=== PATIENT | male | born 1945 | race Caucasian/White ===

== ENCOUNTER 2018-09-08 05:18 | Inpatient (IN) | payer MEDICARE ==
[~2018-09-08] VITALS: Ht 185.4 cm; Wt 112.7 kg
--- NOTE | 2018-09-08 05:43 | NUR ---
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 PT CONFUSED, ALERT TO SELF ONLY, , REORIENTATED PT X3, MONITORS APPLIED, SIDERAILS UP X2, CALL LIGHT WITHIN REACH.
[2018-09-08] MEDS ORDERED: TAMS-11 PO (05:58)
[2018-09-08] MEDS ORDERED: SIMV20TA3 PO (05:58)
[2018-09-08] MEDS ORDERED: METO200T47 PO (05:58)
[2018-09-08] MEDS ORDERED: ATEN50TA41 PO (05:58)
[2018-09-08] MEDS ORDERED: WARF5TAB PO (05:58)
[2018-09-08] MEDS ORDERED: METF500T17 PO (05:58)
[2018-09-08] MEDS ORDERED: ALLO300T PO (05:58)
[2018-09-08] MEDS ORDERED: METF850T10 PO (05:58)
[2018-09-08] MEDS ORDERED: SODIUM CHLORIDE FLUSH 10ML SYR IVF ONE (06:00)
[2018-09-08 06:14] LABS: MEAN CORPUSCULAR HEMOGLOBIN 32.3 pg (27.5-34.5); MEAN CORPUSCULAR VOLUME 97.7 fL (81-97); MEAN PLATELET VOLUME 9.5 fL (7.4-10.4); PLATELET COUNT 144 x10^3/uL (130-400); RED BLOOD COUNT 4.13 x10^6/uL (4.38-5.82); RED CELL DISTRIBUTION WIDTH 17.1 % (9.4-14.8)
[2018-09-08 06:28] LABS: ALBUMIN 2.3 g/dL (3.4-5.0); ANION GAP 6 mmol/L (5-15); CALCIUM 8.9 mg/dL (8.5-10.1); CHLORIDE 98 mmol/L (98-107)
[2018-09-08 06:33] LABS: ALANINE AMINOTRANSFERASE 22 U/L (12-78); ALKALINE PHOSPHATASE 141 U/L (45-117); BILIRUBIN,TOTAL 1.2 mg/dL (0.2-1.0); TOTAL PROTEIN 5.4 g/dL (6.4-8.2)
[2018-09-08 06:35] LABS: TROPONIN I 0.143 ng/mL (0.000-0.045)
[2018-09-08 06:39] LABS: INTERNATIONAL NORMALIZED RATIO 11.98 (0.93-1.1); PROTHROMBIN TIME 115.4 Seconds (9.6-11.5)
--- NOTE | 2018-09-08 06:39 | NUR ---
ABIODUN FROM LAB CALLED WITH CRITICAL RESULT, TROPONIN-0.143, ERP UPDATED. ADDITIONAL ORDERS RECEIVED FOR LABS-LACTIC ACID, BLOOD C/X'S X2 SETS. Addendum: 09/08/18 at 0640 by CHAVO ERP UPDATED HR-120, ORDER RECEIVED TO NOTIFY MD IF PT'S HR 130 OR HIGHER
[2018-09-08 06:44] LABS: BASOPHILS # (AUTO) 0.01 x10^3/uL (0-0.1); BASOPHILS % (AUTO) 0 % (0-1); EOSINOPHILS % (AUTO) 0 % (1-7); LYMPHOCYTES # (AUTO) 0.85 x10^3/uL (1-3.4); LYMPHOCYTES % (AUTO) 5 % (22-44); MD SCAN; MONOCYTES # (AUTO) 1.32 x10^3/uL (0.2-0.8); MONOCYTES % (AUTO) 7 % (2-9); NEUTROPHILS # (AUTO) 16.25 x10^3/uL (1.8-6.8); NEUTROPHILS % (AUTO) 88 % (42-75)
[2018-09-08] MEDS ORDERED: PHYTONADIONE 10 MG/ML, 1ML ONE ×2 (06:47→09:22)
[2018-09-08] MEDS ORDERED: PHYTONADIONE 10 MG/ML, 1ML IM ONE (07:00)
[2018-09-08 07:01] LABS: MICROSCOPIC INDICATED
[2018-09-08 07:02] LABS: CULTURE INDICATED? YES
--- NOTE | 2018-09-08 07:03 | NUR ---
REPORT GIVEN TO RANDY DAILEY
--- NOTE | 2018-09-08 07:44 | NUR ---
ASSUMED CARE OF PT, BEDSIDE REPORT FROM ROXANNE PADILLA. PT PRESENTED TO ED WITH AMS, VSS AT THIS TIME, PT RESTING IN BED, AOX2. PLAN FOR LP THEN ADMIT.
[2018-09-08] MEDS ORDERED: CEFTRIAXONE PMX 1GM/50ML 50 ML ONE (08:20)
[2018-09-08] MEDS ORDERED: CEFTRIAXONE PMX 1GM/50ML 50 ML IV ONE (08:30)
--- NOTE | 2018-09-08 08:41 | NUR ---
DR. TRAN IS AT THE BEDSIDE ASSESSING THE PT. AT THIS TIME. IV ABX ARE INFUSING. PT. REMAINS MONITORED. SIDERAILS ARE UP X 2 AND THE CALL LIGHT IS IN PLACE.
[2018-09-08] MEDS ORDERED: POLYETHYLENE GLYCOL 17 GM PACKET PO PRN (09:00)
[2018-09-08] MEDS ORDERED: PHYTONADIONE 10 MG/ML, 1ML SQ ONE (09:00)
[2018-09-08] MEDS ORDERED: ONDANSETRON ODT 4 MG PO PRN (09:00)
[2018-09-08] MEDS ORDERED: ONDANSETRON 2MG/ML, 2ML IVPush PRN (09:00)
[2018-09-08] MEDS: SENNA/DOCUSATE TABLET PO SCH (09:00)
[2018-09-08] MEDS ORDERED: LABETALOL 5MG/ML, 20ML IVPush PRN (09:00)
--- NOTE | 2018-09-08 09:00 | NUR ---
NO CHANGES AT THIS TIME. PT. REMAINS MONITORED.
[2018-09-08 09:49] LABS: FREE T4 (FREE THYROXINE) 1.39 ng/dL (0.76-1.46); THYROID STIMULATING HORMONE 1.07 mIU/L (0.358-3.740)
--- NOTE | 2018-09-08 10:19 | NUR ---
PT. IS RESTING WITH THE CP MONITOR IN PLACE. VSS. NO CONCERNS AT THIS TIME.
--- NOTE | 2018-09-08 11:21 | NUR ---
PT RESTING IN BED, LAB AT BEDSIDE FOR TROPO. US TECH CONTACTED TO DO ECHO. PT ON TELE HOLD IN ED. PT AOX3 BUT CONVERSING, NO C/O PAIN. NAD. ON CARDIAC AND SPO2 MONITOR. WCTM. DECLINES RN TO CONTACT FAMILY OR FRIENDS AT THIS TIME.
[2018-09-08 11:42] LABS: TROPONIN I 0.102 ng/mL (0.000-0.045)
--- NOTE | 2018-09-08 12:28 | NUR ---
RN CHARY PLACED AN EJ IN THE LEFT SIDE OF HIS NECK FOR A CTA OF HIS CHEST TO BE DONE. PT. IS AWAKE AND SPEAKING AT THIS TIME. MENDEZ KANG IS AT THE BEDSIDE ATTEMPTING TO GET FAMILY INFORMATION FOR DR. TRAN. PT. HAS NO C/O PAIN.
--- NOTE | 2018-09-08 12:55 | NUR ---
MD AT BEDSIDE, DISCUSSED PROGNOSIS WITH PT AND PT WISHES TO REMAIN FULL CODE AT THIS TIME. BLADDER SCAN PERFORMED. EJ PLACED FOR CTA. SW ATTEMPTING TO CONTACT FAMILY.
[2018-09-08] MEDS: METOPROLOL TARTRATE 100 MG TABLET PO SCH ×3 (13:00→20:33)
[2018-09-08] MEDS ORDERED: METOPROLOL 1 MG/ML, 5ML IVPush ONE (13:00)
[2018-09-08] MEDS ORDERED: PIPERACILLIN/TAZO/PMX 3.375GM 50 ML IV SCH ×2 (13:00→21:00)
[2018-09-08] MEDS ORDERED: PHYTONADIONE 5 MG TABLET PO ONE (13:00)
--- NOTE | 2018-09-08 13:01 | NUR ---
PT.'S BLADDER WAS SCANNED. PT. HAS 360CC URINE PRESENT IN HIS BLADDER.
[2018-09-08] MEDS ORDERED: METOPROLOL 1 MG/ML, 5ML ONE (13:24)
[2018-09-08] MEDS ORDERED: FAMOTIDINE 20 MG/2 ML ONE (13:24)
[2018-09-08] MEDS ORDERED: PIPERACILLIN/TAZO/PMX 3.375GM 50 ML ONE (13:24)
[2018-09-08] MEDS ORDERED: METOPROLOL TARTRATE 50 MG TABLET ONE (13:24)
[2018-09-08] MEDS ORDERED: PHARMACY MAY ADJ FOR RENAL FX MC PRN (13:30)
--- NOTE | 2018-09-08 13:50 | NUR ---
PT RETURNED FROM CT, MEDICATED PER MD. PT CONVERSING BUT LETHARGIC. AOX3. PT TOOK PO MEDICATION WELL. O2 DECREASED FROM 4L TO 2L.
[2018-09-08] MEDS: FAMOTIDINE 20 MG/2 ML IVPush SCH ×2 (13:58→20:33)
[2018-09-08] MEDS ORDERED: OMNIPAQUE 350 MG/ML, 100ML BOTTLE ONE (14:24)
--- NOTE | 2018-09-08 14:44 | NUR ---
RN SPOKE WITH DR. ESCAMILLA ON THE PHONE, ORDERS RECEIVED. PT. WAS PLACED ON AN ESMOLOL GTT WHICH IS INFUSING ON THE PUMP ORDERED. IV ABX ARE INFUSING. MD WAS ASKED TO ORDER TYPE AND SCREEN FOR FFP INFUSION. PT. REMAINS MONITORED, HOB ELEVATED GREATER THAN 30 DEGREES. SIDERAILS ARE UP X 2. PT. HAS NO C/O PAIN.
[2018-09-08] MEDS: ESMOLOL/NS PMX 250 ML IV PRN (14:49)
--- NOTE | 2018-09-08 14:52 | NUR ---
RANDY CASTILLO IS CALLING REPORT TO RANDY SLADE IN CCU AT THIS TIME. PT. REMAINS MONITORED WITH ALL MEDICATIONS INFUSING ON PUMPS.
[2018-09-08] MEDS ORDERED: ESMOLOL/NS PMX 250 ML IV PRN (15:00)
--- NOTE | 2018-09-08 15:07 | NUR ---
PT. HAS THE CP MONITOR IN PLACE. PT.'S FRIEND MYESHA SANCHEZ PHONED TO INQUIRE ABOUT THE PT. PT. GAVE PERMISSION TO DISCUSS HIS CONDITION, TX AND CARE WITH HIS FRIEND. PT.'S FRIEND MYESHA WAS UPDATED ON THE PT.'S CONDITION. PT.'S FRIEND GAVE RN PT.'S BROTHER'S PHONE NUMBER. FRIEND: MYESHA SANCHEZ: [phone]. BROTHER: MYESHA GORDON SR. [phone].
[2018-09-08 16:49] VITALS: BP 116/90
[2018-09-08 17:04] VITALS: BP 122/93
[2018-09-08 18:21] VITALS: BP 140/89
[2018-09-08 18:35] VITALS: BP 118/91
[2018-09-08 19:30] VITALS: BP 109/82
[2018-09-08] MEDS: PIPERACILLIN/TAZO/PMX 4.5GM 100 ML IV SCH (20:27)
[2018-09-08] MEDS: FUROSEMIDE 20 MG TABLET PO SCH ×2 (20:30→20:33)
[2018-09-08] MEDS: ATORVASTATIN 20 MG TABLET PO SCH ×2 (20:30→20:33)
[2018-09-08] MEDS: POTASSIUM CHLORIDE 20 MEQ TAB.ER.PRT PO SCH ×2 (20:30→20:32)
[2018-09-08] MEDS ORDERED: ALBUMIN HUMAN 25% 100 ML IV ONE (20:30)
[2018-09-08 21:03] LABS: INTERNATIONAL NORMALIZED RATIO 3.09 (0.93-1.1); PROTHROMBIN TIME 31.4 Seconds (9.6-11.5)
[2018-09-08] MEDS ORDERED: FUROSEMIDE 40 MG/4 ML IV ONE (23:00)
[2018-09-08] MEDS ORDERED: POTASSIUM CHLORIDE 20 MEQ in SODIUM CHLORIDE 0.9% 250 ML IV ONE (23:00)
[2018-09-09] MEDS: PIPERACILLIN/TAZO/PMX 4.5GM 100 ML IV SCH ×4 (02:14→20:18)
[2018-09-09 04:43] LABS: MEAN CORPUSCULAR HEMOGLOBIN 31.1 pg (27.5-34.5); MEAN CORPUSCULAR HGB CONC 32.2 g/dL (33.2-36.2); MEAN CORPUSCULAR VOLUME 96.4 fL (81-97); MEAN PLATELET VOLUME 9.4 fL (7.4-10.4); PLATELET COUNT 119 x10^3/uL (130-400); RED BLOOD COUNT 3.97 x10^6/uL (4.38-5.82); RED CELL DISTRIBUTION WIDTH 16.9 % (9.4-14.8)
[2018-09-09 04:46] LABS: INTERNATIONAL NORMALIZED RATIO 2.01 (0.93-1.1); PROTHROMBIN TIME 20.7 Seconds (9.6-11.5)
[2018-09-09 04:48] LABS: ALBUMIN 2.4 g/dL (3.4-5.0); ANION GAP 8 mmol/L (5-15); CALCIUM 8.7 mg/dL (8.5-10.1); CHLORIDE 100 mmol/L (98-107)
[2018-09-09 04:51] LABS: ALANINE AMINOTRANSFERASE 16 U/L (12-78); ALKALINE PHOSPHATASE 114 U/L (45-117); BILIRUBIN,TOTAL 1.7 mg/dL (0.2-1.0); TOTAL PROTEIN 5.4 g/dL (6.4-8.2)
[2018-09-09 05:08] LABS: BASOPHILS % (AUTO) 0 % (0-1); EOSINOPHILS # (AUTO) 0.01 x10^3/uL (0-0.4); EOSINOPHILS % (AUTO) 0 % (1-7); LYMPHOCYTES # (AUTO) 0.32 x10^3/uL (1-3.4); LYMPHOCYTES % (AUTO) 3 % (22-44); MD SCAN; MONOCYTES # (AUTO) 0.44 x10^3/uL (0.2-0.8); MONOCYTES % (AUTO) 4 % (2-9); NEUTROPHILS % (AUTO) 94 % (42-75)
[2018-09-09] MEDS: METOPROLOL TARTRATE 100 MG TABLET PO SCH ×2 (06:00→16:25)
[2018-09-09] MEDS: ESMOLOL/NS PMX 250 ML IV PRN (06:36)
[2018-09-09] MEDS: FAMOTIDINE 20 MG/2 ML IVPush SCH ×2 (07:44→20:18)
[2018-09-09] MEDS: SENNA/DOCUSATE TABLET PO SCH (09:00)
[2018-09-09] MEDS ORDERED: TEMPLATE NON-FORMULARY MED. (Metoprolol Succinate** 200 MG) PO SCH (09:00)
[2018-09-09] MEDS: TAMSULOSIN 0.4 MG CAP.ER.24H PO SCH (09:00)
[2018-09-09] MEDS ORDERED: GADOBUTROL 10 MMOL/10 ML PFS ONE (12:44)
[2018-09-09] MEDS: PHYTONADIONE 10 MG/ML, 1ML SQ SCH (16:25)
[2018-09-09] MEDS: ATORVASTATIN 20 MG TABLET PO SCH (20:18)
[2018-09-10] MEDS: PIPERACILLIN/TAZO/PMX 4.5GM 100 ML IV SCH (02:07)
[2018-09-10 04:24] LABS: BASOPHILS % (AUTO) 0 % (0-1); EOSINOPHILS # (AUTO) 0.03 x10^3/uL (0-0.4); EOSINOPHILS % (AUTO) 0 % (1-7); LYMPHOCYTES # (AUTO) 0.39 x10^3/uL (1-3.4); LYMPHOCYTES % (AUTO) 3 % (22-44); MD NO; MEAN CORPUSCULAR HEMOGLOBIN 32.1 pg (27.5-34.5); MEAN CORPUSCULAR HGB CONC 32.9 g/dL (33.2-36.2); MEAN CORPUSCULAR VOLUME 97.6 fL (81-97); MEAN PLATELET VOLUME 9.7 fL (7.4-10.4); MONOCYTES # (AUTO) 1.06 x10^3/uL (0.2-0.8); MONOCYTES % (AUTO) 9 % (2-9); NEUTROPHILS # (AUTO) 10.53 x10^3/uL (1.8-6.8); NEUTROPHILS % (AUTO) 88 % (42-75); PLATELET COUNT 106 x10^3/uL (130-400); RED CELL DISTRIBUTION WIDTH 16.8 % (9.4-14.8)
[2018-09-10 04:25] LABS: INTERNATIONAL NORMALIZED RATIO 1.49 (0.93-1.1); PROTHROMBIN TIME 15.6 Seconds (9.6-11.5)
[2018-09-10 04:31] LABS: ANION GAP 6 mmol/L (5-15); CALCIUM 8.4 mg/dL (8.5-10.1); CHLORIDE 100 mmol/L (98-107); CREATININE 1.83 mg/dL (0.7-1.3)
[2018-09-10] MEDS: METOPROLOL TARTRATE 100 MG TABLET PO SCH ×2 (05:54→18:00)
[2018-09-10] MEDS: PIPERACILLIN/TAZO/PMX 3.375GM 50 ML IV SCH ×3 (08:04→20:21)
[2018-09-10] MEDS: SENNA/DOCUSATE TABLET PO SCH (09:00)
[2018-09-10] MEDS: TAMSULOSIN 0.4 MG CAP.ER.24H PO SCH (11:00)
[2018-09-10] MEDS: PHYTONADIONE 10 MG/ML, 1ML SQ SCH (11:01)
[2018-09-10] MEDS: ATORVASTATIN 20 MG TABLET PO SCH (20:21)
[2018-09-10 21:19] VITALS: BP 83/49
[2018-09-10 22:24] VITALS: BP 97/64
[2018-09-11] MEDS: PIPERACILLIN/TAZO/PMX 3.375GM 50 ML IV SCH ×4 (01:22→21:14)
[2018-09-11 01:28] VITALS: BP 104/76
[2018-09-11] MEDS: METOPROLOL TARTRATE 100 MG TABLET PO SCH ×2 (05:42→18:03)
[2018-09-11 06:13] LABS: BASOPHILS % (AUTO) 0 % (0-1); EOSINOPHILS # (AUTO) 0.01 x10^3/uL (0-0.4); EOSINOPHILS % (AUTO) 0 % (1-7); LYMPHOCYTES # (AUTO) 0.51 x10^3/uL (1-3.4); LYMPHOCYTES % (AUTO) 4 % (22-44); MD NO; MEAN CORPUSCULAR HEMOGLOBIN 31.7 pg (27.5-34.5); MEAN CORPUSCULAR HGB CONC 32.6 g/dL (33.2-36.2); MEAN CORPUSCULAR VOLUME 97.4 fL (81-97); MEAN PLATELET VOLUME 9.7 fL (7.4-10.4); MONOCYTES # (AUTO) 1.35 x10^3/uL (0.2-0.8); MONOCYTES % (AUTO) 10 % (2-9); NEUTROPHILS # (AUTO) 11.36 x10^3/uL (1.8-6.8); NEUTROPHILS % (AUTO) 86 % (42-75); PLATELET COUNT 111 x10^3/uL (130-400); RED BLOOD COUNT 4.19 x10^6/uL (4.38-5.82); RED CELL DISTRIBUTION WIDTH 17.1 % (9.4-14.8)
[2018-09-11 06:21] LABS: ANION GAP 8 mmol/L (5-15); CHLORIDE 99 mmol/L (98-107); CREATININE 2.32 mg/dL (0.7-1.3)
[2018-09-11 07:40] VITALS: BP 95/64
[2018-09-11] MEDS: PHYTONADIONE 10 MG/ML, 1ML SQ SCH (10:50)
[2018-09-11] MEDS: TAMSULOSIN 0.4 MG CAP.ER.24H PO SCH (10:56)
[2018-09-11] MEDS: SENNA/DOCUSATE TABLET PO SCH (10:56)
[2018-09-11 12:29] LABS: INTERNATIONAL NORMALIZED RATIO 1.28 (0.93-1.1); PROTHROMBIN TIME 13.4 Seconds (9.6-11.5)
[2018-09-11 13:22] VITALS: BP 115/76
[2018-09-11] MEDS: INSULIN LISPRO 100 UNITS/ML, PEN SQ-INSULIN SCH ×3 (15:17→21:19)
[2018-09-11] MEDS: SODIUM CHLORIDE 0.9% 1,000 ML IV SCH (16:51)
[2018-09-11 20:26] VITALS: BP 120/68
[2018-09-11] MEDS: ATORVASTATIN 20 MG TABLET PO SCH (21:14)
[2018-09-12] MEDS: PIPERACILLIN/TAZO/PMX 3.375GM 50 ML IV SCH ×4 (02:34→20:47)
[2018-09-12 03:39] VITALS: BP 129/86
[2018-09-12 04:28] LABS: BASOPHILS # (AUTO) 0.05 x10^3/uL (0-0.1); BASOPHILS % (AUTO) 0 % (0-1); EOSINOPHILS # (AUTO) 0.03 x10^3/uL (0-0.4); EOSINOPHILS % (AUTO) 0 % (1-7); LYMPHOCYTES # (AUTO) 0.68 x10^3/uL (1-3.4); LYMPHOCYTES % (AUTO) 5 % (22-44); MD NO; MEAN CORPUSCULAR HEMOGLOBIN 31.4 pg (27.5-34.5); MEAN CORPUSCULAR HGB CONC 32.2 g/dL (33.2-36.2); MEAN CORPUSCULAR VOLUME 97.4 fL (81-97); MEAN PLATELET VOLUME 9.5 fL (7.4-10.4); MONOCYTES # (AUTO) 1.27 x10^3/uL (0.2-0.8); MONOCYTES % (AUTO) 9 % (2-9); NEUTROPHILS # (AUTO) 11.51 x10^3/uL (1.8-6.8); NEUTROPHILS % (AUTO) 85 % (42-75); PLATELET COUNT 132 x10^3/uL (130-400); RED BLOOD COUNT 4.38 x10^6/uL (4.38-5.82); RED CELL DISTRIBUTION WIDTH 17.2 % (9.4-14.8)
[2018-09-12 04:40] LABS: CALCIUM 8.5 mg/dL (8.5-10.1); CHLORIDE 101 mmol/L (98-107)
[2018-09-12 04:43] LABS: ANION GAP 10 mmol/L (5-15); CREATININE 2.79 mg/dL (0.7-1.3)
[2018-09-12] MEDS: SODIUM CHLORIDE 0.9% 1,000 ML IV SCH ×2 (06:17→20:49)
[2018-09-12] MEDS: METOPROLOL TARTRATE 100 MG TABLET PO SCH ×2 (06:17→18:13)
[2018-09-12] MEDS: INSULIN LISPRO 100 UNITS/ML, PEN SQ-INSULIN SCH ×4 (07:00→20:47)
[2018-09-12] MEDS: TAMSULOSIN 0.4 MG CAP.ER.24H PO SCH (09:11)
[2018-09-12] MEDS: SENNA/DOCUSATE TABLET PO SCH (09:11)
[2018-09-12] MEDS: PHYTONADIONE 10 MG/ML, 1ML SQ SCH (09:12)
[2018-09-12 09:20] VITALS: BP 116/83
[2018-09-12 11:27] LABS: MICROSCOPIC INDICATED
[2018-09-12] MEDS ORDERED: VANCOMYCIN PER PHARMACY MC PRN (11:30)
[2018-09-12 11:36] LABS: CREATININE,URINE RANDOM 70.1 mg/dL
[2018-09-12] MEDS ORDERED: PHARMACOKINETIC MONITORING MC PRN (12:00)
[2018-09-12] MEDS ORDERED: PHARMACOKINETIC CONSULTATION MC ONE (12:00)
[2018-09-12] MEDS ORDERED: VANCOMYCIN 2,000 MG in SODIUM CHLORIDE 0.9% 500 ML IV SCH (12:00)
[2018-09-12 12:14] LABS: CULTURE INDICATED? YES
[2018-09-12 12:55] VITALS: BP 122/87
[2018-09-12 18:17] VITALS: BP 135/90
[2018-09-12] MEDS: ATORVASTATIN 20 MG TABLET PO SCH (20:47)
[2018-09-13 01:50] VITALS: BP 136/96
[2018-09-13] MEDS: PIPERACILLIN/TAZO/PMX 3.375GM 50 ML IV SCH ×4 (02:00→21:45)
[2018-09-13] MEDS: METOPROLOL TARTRATE 100 MG TABLET PO SCH ×2 (05:58→17:37)
[2018-09-13 06:02] LABS: BASOPHILS % (AUTO) 0 % (0-1); EOSINOPHILS # (AUTO) 0.02 x10^3/uL (0-0.4); EOSINOPHILS % (AUTO) 0 % (1-7); LYMPHOCYTES # (AUTO) 0.71 x10^3/uL (1-3.4); LYMPHOCYTES % (AUTO) 6 % (22-44); MD NO; MEAN CORPUSCULAR HEMOGLOBIN 31.4 pg (27.5-34.5); MEAN CORPUSCULAR HGB CONC 32.4 g/dL (33.2-36.2); MEAN CORPUSCULAR VOLUME 96.8 fL (81-97); MEAN PLATELET VOLUME 9.2 fL (7.4-10.4); MONOCYTES # (AUTO) 1.26 x10^3/uL (0.2-0.8); MONOCYTES % (AUTO) 10 % (2-9); NEUTROPHILS # (AUTO) 10.62 x10^3/uL (1.8-6.8); NEUTROPHILS % (AUTO) 84 % (42-75); PLATELET COUNT 128 x10^3/uL (130-400); RED BLOOD COUNT 4.37 x10^6/uL (4.38-5.82); RED CELL DISTRIBUTION WIDTH 16.9 % (9.4-14.8)
[2018-09-13 06:16] LABS: ANION GAP 8 mmol/L (5-15); CALCIUM 8.4 mg/dL (8.5-10.1); CHLORIDE 102 mmol/L (98-107); CREATININE 3.16 mg/dL (0.7-1.3)
[2018-09-13 07:05] VITALS: BP 131/96
[2018-09-13] MEDS: INSULIN LISPRO 100 UNITS/ML, PEN SQ-INSULIN SCH ×4 (07:50→21:46)
[2018-09-13] MEDS: SENNA/DOCUSATE TABLET PO SCH (09:00)
[2018-09-13] MEDS: TAMSULOSIN 0.4 MG CAP.ER.24H PO SCH (09:07)
[2018-09-13 13:17] VITALS: BP 103/63
[2018-09-13] MEDS: SODIUM CHLORIDE 0.9% 1,000 ML IV SCH (20:00)
[2018-09-13 20:29] VITALS: BP 109/78
[2018-09-13] MEDS: ATORVASTATIN 20 MG TABLET PO SCH (21:45)
[2018-09-14] MEDS ORDERED: VANCOMYCIN PER PHARMACY MC PRN (00:30)
[2018-09-14] MEDS: PIPERACILLIN/TAZO 2.25 GM in SODIUM CHLORIDE 0.9% 50 ML IV SCH ×4 (01:30→21:14)
[2018-09-14 02:58] VITALS: BP 128/94
[2018-09-14] MEDS: METOPROLOL TARTRATE 100 MG TABLET PO SCH ×2 (05:34→18:13)
[2018-09-14 06:10] LABS: BASOPHILS % (AUTO) 0 % (0-1); CHLORIDE 103 mmol/L (98-107); EOSINOPHILS # (AUTO) 0.03 x10^3/uL (0-0.4); EOSINOPHILS % (AUTO) 0 % (1-7); LYMPHOCYTES # (AUTO) 0.67 x10^3/uL (1-3.4); LYMPHOCYTES % (AUTO) 7 % (22-44); MD NO; MEAN CORPUSCULAR HEMOGLOBIN 31.8 pg (27.5-34.5); MEAN CORPUSCULAR HGB CONC 32.8 g/dL (33.2-36.2); MEAN CORPUSCULAR VOLUME 97.1 fL (81-97); MEAN PLATELET VOLUME 9.5 fL (7.4-10.4); MONOCYTES % (AUTO) 11 % (2-9); NEUTROPHILS # (AUTO) 8.52 x10^3/uL (1.8-6.8); NEUTROPHILS % (AUTO) 83 % (42-75); PLATELET COUNT 135 x10^3/uL (130-400); RED BLOOD COUNT 4.55 x10^6/uL (4.38-5.82)
[2018-09-14 06:17] LABS: ANION GAP 7 mmol/L (5-15); CALCIUM 8.6 mg/dL (8.5-10.1); CREATININE 3.25 mg/dL (0.7-1.3)
[2018-09-14] MEDS: INSULIN LISPRO 100 UNITS/ML, PEN SQ-INSULIN SCH ×4 (07:00→21:14)
[2018-09-14 08:04] VITALS: BP 121/90
[2018-09-14] MEDS: SENNA/DOCUSATE TABLET PO SCH (09:00)
[2018-09-14] MEDS: LINEZOLID PMX 600MG/300ML 300 ML IV SCH ×2 (10:19→22:57)
[2018-09-14] MEDS: TAMSULOSIN 0.4 MG CAP.ER.24H PO SCH ×2 (10:20→12:16)
[2018-09-14] MEDS: SODIUM CHLORIDE 0.9% 1,000 ML IV SCH (15:28)
[2018-09-14 16:10] VITALS: BP 134/89
[2018-09-14 18:33] VITALS: BP 128/84
[2018-09-14] MEDS: ATORVASTATIN 20 MG TABLET PO SCH (21:14)
[2018-09-15 01:04] VITALS: BP 123/80
[2018-09-15] MEDS: PIPERACILLIN/TAZO 2.25 GM in SODIUM CHLORIDE 0.9% 50 ML IV SCH ×3 (02:45→17:19)
[2018-09-15] MEDS: SODIUM CHLORIDE 0.9% 1,000 ML IV SCH (06:00)
[2018-09-15] MEDS: METOPROLOL TARTRATE 100 MG TABLET PO SCH ×2 (06:03→17:19)
[2018-09-15] MEDS: INSULIN LISPRO 100 UNITS/ML, PEN SQ-INSULIN SCH ×4 (07:00→20:03)
[2018-09-15] MEDS: LINEZOLID PMX 600MG/300ML 300 ML IV SCH ×2 (08:16→20:02)
[2018-09-15 09:20] VITALS: BP 152/104
[2018-09-15] MEDS: TAMSULOSIN 0.4 MG CAP.ER.24H PO SCH (09:58)
[2018-09-15] MEDS: SENNA/DOCUSATE TABLET PO SCH (09:58)
[2018-09-15 11:31] LABS: BASOPHILS # (AUTO) 0.02 x10^3/uL (0-0.1); BASOPHILS % (AUTO) 0 % (0-1); EOSINOPHILS # (AUTO) 0.03 x10^3/uL (0-0.4); EOSINOPHILS % (AUTO) 0 % (1-7); LYMPHOCYTES % (AUTO) 6 % (22-44); MD NO; MEAN CORPUSCULAR HEMOGLOBIN 30.7 pg (27.5-34.5); MEAN CORPUSCULAR HGB CONC 31.9 g/dL (33.2-36.2); MEAN CORPUSCULAR VOLUME 96.2 fL (81-97); MEAN PLATELET VOLUME 8.8 fL (7.4-10.4); MONOCYTES # (AUTO) 0.88 x10^3/uL (0.2-0.8); MONOCYTES % (AUTO) 7 % (2-9); NEUTROPHILS # (AUTO) 10.71 x10^3/uL (1.8-6.8); NEUTROPHILS % (AUTO) 87 % (42-75); PLATELET COUNT 168 x10^3/uL (130-400); RED BLOOD COUNT 4.75 x10^6/uL (4.38-5.82); RED CELL DISTRIBUTION WIDTH 17.3 % (9.4-14.8)
[2018-09-15 11:41] LABS: ALANINE AMINOTRANSFERASE 22 U/L (12-78); ALBUMIN 2.1 g/dL (3.4-5.0); ANION GAP 10 mmol/L (5-15); CALCIUM 8.5 mg/dL (8.5-10.1); CHLORIDE 101 mmol/L (98-107); CREATININE 2.95 mg/dL (0.7-1.3)
[2018-09-15 11:43] LABS: ALKALINE PHOSPHATASE 218 U/L (45-117); TOTAL PROTEIN 5.4 g/dL (6.4-8.2)
[2018-09-15] MEDS ORDERED: LIDOCAINE-MPF 1%, 5ML ONE (12:35)
[2018-09-15] MEDS: ALBUMIN HUMAN 25% 100 ML IV SCH ×2 (16:02→23:06)
[2018-09-15 16:25] VITALS: BP 123/86
[2018-09-15 19:04] VITALS: BP 124/84
[2018-09-15] MEDS: ATORVASTATIN 20 MG TABLET PO SCH (20:02)
[2018-09-16] MEDS: PIPERACILLIN/TAZO/PMX 2.25GM 50 ML IV SCH ×4 (02:12→20:31)
[2018-09-16 02:24] VITALS: BP 132/92
[2018-09-16] MEDS: ALBUMIN HUMAN 25% 100 ML IV SCH ×3 (05:05→16:47)
[2018-09-16] MEDS: METOPROLOL TARTRATE 100 MG TABLET PO SCH ×2 (05:05→17:45)
[2018-09-16] MEDS: INSULIN LISPRO 100 UNITS/ML, PEN SQ-INSULIN SCH ×4 (07:00→21:36)
[2018-09-16 08:05] VITALS: BP 121/78
[2018-09-16] MEDS: SENNA/DOCUSATE TABLET PO SCH (08:15)
[2018-09-16] MEDS: TAMSULOSIN 0.4 MG CAP.ER.24H PO SCH (08:15)
[2018-09-16] MEDS: LINEZOLID PMX 600MG/300ML 300 ML IV SCH ×2 (09:14→22:29)
[2018-09-16 10:23] LABS: ANION GAP 9 mmol/L (5-15); CALCIUM 8.3 mg/dL (8.5-10.1); CHLORIDE 105 mmol/L (98-107); CREATININE 2.45 mg/dL (0.7-1.3)
[2018-09-16 10:25] LABS: MEAN CORPUSCULAR HEMOGLOBIN 30.9 pg (27.5-34.5); MEAN CORPUSCULAR HGB CONC 32.2 g/dL (33.2-36.2); MEAN CORPUSCULAR VOLUME 96.1 fL (81-97); MEAN PLATELET VOLUME 8.9 fL (7.4-10.4); PLATELET COUNT 154 x10^3/uL (130-400); RED CELL DISTRIBUTION WIDTH 17.4 % (9.4-14.8)
[2018-09-16 10:42] LABS: BASOPHILS # (AUTO) 0.01 x10^3/uL (0-0.1); BASOPHILS % (AUTO) 0 % (0-1); EOSINOPHILS # (AUTO) 0.03 x10^3/uL (0-0.4); EOSINOPHILS % (AUTO) 0 % (1-7); LYMPHOCYTES # (AUTO) 0.57 x10^3/uL (1-3.4); LYMPHOCYTES % (AUTO) 5 % (22-44); MD MORPH REVIEW ONLY; MONOCYTES # (AUTO) 0.76 x10^3/uL (0.2-0.8); MONOCYTES % (AUTO) 7 % (2-9); NEUTROPHILS # (AUTO) 9.75 x10^3/uL (1.8-6.8); NEUTROPHILS % (AUTO) 88 % (42-75)
[2018-09-16 10:44] LABS: <PLATELET ESTIMATE> ADEQUATE; <PLT MORPHOLOGY> NORMAL PLT MORPH; ANISOCYTOSIS 1+; OVALOCYTES 1+; POLYCHROMASIA 1+
[2018-09-16 13:05] VITALS: BP 133/97
[2018-09-16 20:00] VITALS: BP 138/88
[2018-09-16] MEDS: ATORVASTATIN 20 MG TABLET PO SCH (21:36)
[2018-09-17] MEDS: ALBUMIN HUMAN 25% 100 ML IV SCH ×2 (01:09→08:56)
[2018-09-17 01:43] VITALS: BP 132/90
[2018-09-17] MEDS: PIPERACILLIN/TAZO/PMX 2.25GM 50 ML IV SCH ×3 (02:26→14:34)
[2018-09-17 05:45] LABS: BASOPHILS % (AUTO) 0 % (0-1); EOSINOPHILS # (AUTO) 0.01 x10^3/uL (0-0.4); EOSINOPHILS % (AUTO) 0 % (1-7); LYMPHOCYTES # (AUTO) 0.69 x10^3/uL (1-3.4); LYMPHOCYTES % (AUTO) 6 % (22-44); MD NO; MEAN CORPUSCULAR HEMOGLOBIN 31.8 pg (27.5-34.5); MEAN CORPUSCULAR HGB CONC 32.8 g/dL (33.2-36.2); MEAN CORPUSCULAR VOLUME 97.2 fL (81-97); MEAN PLATELET VOLUME 8.7 fL (7.4-10.4); MONOCYTES # (AUTO) 0.76 x10^3/uL (0.2-0.8); MONOCYTES % (AUTO) 6 % (2-9); NEUTROPHILS # (AUTO) 11.14 x10^3/uL (1.8-6.8); NEUTROPHILS % (AUTO) 88 % (42-75); PLATELET COUNT 153 x10^3/uL (130-400); RED BLOOD COUNT 4.05 x10^6/uL (4.38-5.82)
[2018-09-17] MEDS: METOPROLOL TARTRATE 100 MG TABLET PO SCH ×2 (05:58→18:17)
[2018-09-17 06:06] LABS: ANION GAP 9 mmol/L (5-15); CALCIUM 8.7 mg/dL (8.5-10.1); CHLORIDE 107 mmol/L (98-107)
[2018-09-17 06:07] LABS: CREATININE 2.15 mg/dL (0.7-1.3)
[2018-09-17] MEDS: INSULIN LISPRO 100 UNITS/ML, PEN SQ-INSULIN SCH ×3 (07:00→18:18)
[2018-09-17 08:00] VITALS: BP 155/108
[2018-09-17] MEDS: TAMSULOSIN 0.4 MG CAP.ER.24H PO SCH (08:57)
[2018-09-17] MEDS: SENNA/DOCUSATE TABLET PO SCH (08:57)
[2018-09-17] MEDS ORDERED: POTASSIUM CHLORIDE 20 MEQ TAB.ER.PRT PO ONE (10:30)
[2018-09-17 12:15] VITALS: BP 146/104
[2018-09-17 13:30] VITALS: BP 131/89
[2018-09-17] MEDS: LINEZOLID PMX 600MG/300ML 300 ML IV SCH (13:43)
[2018-09-17] MEDS ORDERED: METO-99 PO (14:03)
[2018-09-17] MEDS ORDERED: ALLO100T30 PO (14:03)
[2018-09-17] MEDS ORDERED: INSU100I11 SQ-INSULIN (14:03)
[2018-09-17] MEDS ORDERED: LINE600T37 PO (14:06)
[2018-09-17] MEDS ORDERED: LEVO500T47 PO (14:06)
[2018-09-17 16:23] VITALS: BP 147/99
[2018-09-17 18:09] VITALS: BP 142/98
== END 2018-09-17 23:53 | disposition home or self-care (01) | DRG 871 ==
LOC: ED 08:04 → EDIP 08:05 → ED 08:11 → CCU 15:20 → 4WST 09-10 15:13
PROVIDERS: ADMIT Internal Medicine; ATTEND Internal Medicine
PROC: 30233K1 Transfusion of Nonautologous Frozen Plasma into Peripheral Vein, Percutaneous Approach (ICD-10-PCS; 2018-09-08)
PROC: 0T9B70Z Drainage of Bladder with Drainage Device, Via Natural or Artificial Opening (ICD-10-PCS; 2018-09-08)
PROC: 0W9G3ZZ Drainage of Peritoneal Cavity, Percutaneous Approach (ICD-10-PCS; principal; 2018-09-15)
DX: A41.9 Sepsis, unspecified organism (principal); G93.41 Metabolic encephalopathy; I71.01 Dissection of thoracic aorta; I61.9 Nontraumatic intracerebral hemorrhage, unspecified; I71.02 Dissection of abdominal aorta; J18.9 Pneumonia, unspecified organism; J96.01 Acute respiratory failure with hypoxia; I62.00 Nontraumatic subdural hemorrhage, unspecified; D68.59 Other primary thrombophilia; I13.0 Hypertensive heart and chronic kidney disease with heart failure and stage 1 through stage 4 chronic kidney disease, or unspecified chronic kidney disease; J44.0 Chronic obstructive pulmonary disease with (acute) lower respiratory infection; J90 Pleural effusion, not elsewhere classified; J98.11 Atelectasis; N17.9 Acute kidney failure, unspecified; R18.8 Other ascites; K56.7 Ileus, unspecified; D64.9 Anemia, unspecified; E04.2 Nontoxic multinodular goiter; E11.22 Type 2 diabetes mellitus with diabetic chronic kidney disease; E78.00 Pure hypercholesterolemia, unspecified; F17.200 Nicotine dependence, unspecified, uncomplicated; E78.5 Hyperlipidemia, unspecified; Z88.8 Allergy status to other drugs, medicaments and biological substances; I27.29 Other secondary pulmonary hypertension; I48.2 Chronic atrial fibrillation; I50.810 Right heart failure, unspecified; K21.9 Gastro-esophageal reflux disease without esophagitis; K76.9 Liver disease, unspecified; M10.9 Gout, unspecified; N18.9 Chronic kidney disease, unspecified; N40.0 Benign prostatic hyperplasia without lower urinary tract symptoms; T50.8X5A Adverse effect of diagnostic agents, initial encounter; Y95 Nosocomial condition; Z79.01 Long term (current) use of anticoagulants; Z86.79 Personal history of other diseases of the circulatory system; Z95.2 Presence of prosthetic heart valve
CPT/HCPCS: 36415; 36430; 49083; 70450; 70553; 71045; 71250; 71275; 74018; 74174; 74176; 76700; 80048; 80053; 80202; 81001; 82042; 82140; 82570; 82607; 82962; 83605; 83615; 83735; 83880; 83986; 84100; 84145; 84156; 84157; 84300; 84439; 84443; 84484; 85014; 85018; 85025; 85379; 85610; 86850; 86900; 87040; 87070; 87081; 87086; 87205; 88112; 88305; 89051; 93005; 93306; 93975; 93978; 99291; A9585; G0378; J0696; J1940; J2020; J2543; J3370; J3430; J3480; P9047; Q9967; J1815; J3490; J7030; J7040; J7050; P9017

== ENCOUNTER 2018-09-30 22:09 | Inpatient (IN) | payer MEDICARE ==
[~2018-09-30] VITALS: Ht 185.4 cm; Wt 109.9 kg
[~2018-09-30 22:09] MED LIST: ALLO100T30 PO; ALLO300T PO; ATEN50TA41 PO; INSU100I11 SQ-INSULIN; LEVO500T47 PO; LINE600T37 PO; METF500T17 PO; METF850T10 PO; METO-99 PO; METO200T47 PO; SIMV20TA3 PO; TAMS-11 PO; WARF5TAB PO
--- NOTE | 2018-09-30 22:36 | NUR ---
PT BROUGHT IN BY [facility] FOR POSSIBLE SYNCOPAL EPISODE. PT SATING IN 80'S ON ROOM AIR, PLACED ON 4 LPM VIA NC. BLOOD PRESSURE 80'S SYSTOLIC, 1 LITER BOLUS STARTED PER MD AT BEDSIDE, PT ORIENTED TO SELF, DENIES PAIN. LOWER BODY EDEMA, 4+ PITTING WEEPING EDEMA IN BOTH LEGS. BRUSING NOTED R CHEST BILATERAL UE SKIN TEARS. GROIN EXCORIATED, OPEN WOUND L FOOT. SEO IN PLACE WITH CLOUDY YELLOW URINE. PT PLACE ON CARDIAC MONITORM CALL RIGHT IN REACH Addendum: 10/01/18 at 0106 by MANDEEP UNABLE TO TAKE WOUND PICTURES, NO CAMERA AVAILABLE
--- NOTE | 2018-09-30 22:52 | NUR ---
1ST LITER INFUSED; DR. GALVAN UPDATED ON VS. AWAITING LAB FOR BLOOD CULTURES PRIOR TO IV ABX.
[2018-09-30] MEDS ORDERED: SODIUM CHLORIDE 0.9% 1,000ML IVBOLUS ONE ×2 (23:00→23:30)
[2018-09-30] MEDS ORDERED: PIPERACILLIN/TAZO/PMX 3.375GM 50 ML IVPB ONE (23:00)
[2018-09-30] MEDS ORDERED: VANCOMYCIN PER PHARMACY IV ONE (23:00)
[2018-09-30] MEDS ORDERED: PIPERACILLIN/TAZO/PMX 3.375GM 50 ML ONE (23:04)
[2018-09-30 23:14] LABS: BASOPHILS # (AUTO) 0.01 x10^3/uL (0-0.1); BASOPHILS % (AUTO) 0 % (0-1); EOSINOPHILS # (AUTO) 0.01 x10^3/uL (0-0.4); EOSINOPHILS % (AUTO) 0 % (1-7); LYMPHOCYTES # (AUTO) 0.38 x10^3/uL (1-3.4); LYMPHOCYTES % (AUTO) 3 % (22-44); MD NO; MEAN CORPUSCULAR HEMOGLOBIN 31.6 pg (27.5-34.5); MEAN CORPUSCULAR HGB CONC 31.3 g/dL (33.2-36.2); MEAN CORPUSCULAR VOLUME 101.1 fL (81-97); MEAN PLATELET VOLUME 9.2 fL (7.4-10.4); MONOCYTES # (AUTO) 0.94 x10^3/uL (0.2-0.8); MONOCYTES % (AUTO) 8 % (2-9); NEUTROPHILS # (AUTO) 10.28 x10^3/uL (1.8-6.8); NEUTROPHILS % (AUTO) 88 % (42-75); PLATELET COUNT 131 x10^3/uL (130-400); RED BLOOD COUNT 3.63 x10^6/uL (4.38-5.82); RED CELL DISTRIBUTION WIDTH 20.6 % (9.4-14.8)
--- NOTE | 2018-09-30 23:15 | NUR ---
SECOND IV STARTED, ANTIBIOTIC INFUSING AFTER 2 SETS OF BLOOD CULTURES DRAWN
[2018-09-30 23:26] LABS: ALANINE AMINOTRANSFERASE 36 U/L (12-78); ALBUMIN 2.4 g/dL (3.4-5.0); ANION GAP 6 mmol/L (5-15); CALCIUM 7.7 mg/dL (8.5-10.1); CHLORIDE 112 mmol/L (98-107); CREATININE 1.87 mg/dL (0.7-1.3)
[2018-09-30] MEDS ORDERED: VANCOMYCIN 2,000 MG in SODIUM CHLORIDE 0.9% 500 ML IV ONE (23:30)
[2018-09-30 23:31] LABS: ALKALINE PHOSPHATASE 355 U/L (45-117); BILIRUBIN,TOTAL 0.7 mg/dL (0.2-1.0); TOTAL PROTEIN 5.1 g/dL (6.4-8.2); TROPONIN I 0.048 ng/mL (0.000-0.045)
--- NOTE | 2018-09-30 23:34 | NUR ---
LAB CALLED, TROPONIN 0.048, MD NOTIFIED
--- NOTE | 2018-09-30 23:47 | NUR ---
AT APPROXIMATELY 2315 FOELY BAG WAS CHANGED AND FOELY CATH CARE/CLEANING PROVIDED. NO URINE OUTPUT AT THIS TIME; DR. AGLVAN AWARE. NO NEW ORDERS AT THIS TIME.
--- NOTE | 2018-09-30 23:48 | NUR ---
PT RESTLESS, SAYS HE IS AT A TRUCK STOP. VACOMYCIN INFUSING PER eMAR
[2018-10-01] MEDS ORDERED: LABETALOL 5 MG/ML SYRINGE IVPush PRN (00:30)
[2018-10-01] MEDS ORDERED: POLYETHYLENE GLYCOL 17 GM PACKET PO PRN (00:30)
[2018-10-01] MEDS ORDERED: HEPARIN 5,000 UNITS/ML, 1ML SQ SCH (00:30)
[2018-10-01] MEDS ORDERED: HEPARIN 5,000 UNITS/ML, 1ML ONE (00:47)
[2018-10-01] MEDS: CEFTRIAXONE PMX 2GM/50ML 50 ML IV SCH ×2 (01:00→02:29)
[2018-10-01] MEDS ORDERED: SODIUM POLYSTYRENE SULFONATE ORAL SUSP PO SCH (01:00)
[2018-10-01] MEDS ORDERED: FUROSEMIDE 40 MG/4 ML IV ONE (01:00)
[2018-10-01] MEDS ORDERED: SODIUM POLYSTYRENE SULFONATE ORAL SUSP PO ONE (01:00)
--- NOTE | 2018-10-01 01:03 | NUR ---
REPORT GIVEN TO RANDY RILEY
[2018-10-01 01:18] VITALS: BP 94/67
[2018-10-01 03:57] LABS: MICROSCOPIC INDICATED
[2018-10-01 03:58] LABS: CULTURE INDICATED? YES
[2018-10-01] MEDS ORDERED: FUROSEMIDE 40 MG/4 ML IV SCH (04:54)
[2018-10-01] MEDS ORDERED: METOPROLOL TARTRATE 100 MG TABLET PO SCH (06:00)
[2018-10-01] MEDS ORDERED: ASPIRIN 325 MG TABLET EC PO SCH (06:00)
[2018-10-01 06:09] VITALS: BP 107/78
[2018-10-01 07:27] LABS: ANION GAP 7 mmol/L (5-15); CALCIUM 8.6 mg/dL (8.5-10.1); CHLORIDE 109 mmol/L (98-107); CREATININE 2.04 mg/dL (0.7-1.3)
[2018-10-01 07:30] LABS: TROPONIN I 0.035 ng/mL (0.000-0.045)
[2018-10-01 07:57] VITALS: BP 110/76
[2018-10-01] MEDS ORDERED: ALBUTEROL SULFATE 2.5 MG/3 ML ONE (07:58)
[2018-10-01] MEDS ORDERED: ALBUTEROL SULFATE 2.5 MG/3 ML NPPB PRN (08:30)
[2018-10-01 08:33] LABS: BASOPHILS % (AUTO) 0 % (0-1); EOSINOPHILS % (AUTO) 0 % (1-7); LYMPHOCYTES # (AUTO) 0.42 x10^3/uL (1-3.4); LYMPHOCYTES % (AUTO) 3 % (22-44); MD NO; MEAN CORPUSCULAR HEMOGLOBIN 31.8 pg (27.5-34.5); MEAN CORPUSCULAR HGB CONC 31.5 g/dL (33.2-36.2); MEAN CORPUSCULAR VOLUME 100.9 fL (81-97); MEAN PLATELET VOLUME 9.1 fL (7.4-10.4); MONOCYTES # (AUTO) 1.04 x10^3/uL (0.2-0.8); MONOCYTES % (AUTO) 8 % (2-9); NEUTROPHILS # (AUTO) 11.64 x10^3/uL (1.8-6.8); NEUTROPHILS % (AUTO) 89 % (42-75); PLATELET COUNT 144 x10^3/uL (130-400); RED BLOOD COUNT 4.06 x10^6/uL (4.38-5.82); RED CELL DISTRIBUTION WIDTH 21.4 % (9.4-14.8)
[2018-10-01] MEDS ORDERED: DOXYCYCLINE 100MG CAP PO SCH (09:00)
[2018-10-01] MEDS ORDERED: FAMOTIDINE 20 MG/2 ML IVPush SCH (09:00)
[2018-10-01] MEDS ORDERED: NOREPINEPHRINE 4 MG in SODIUM CHLORIDE 0.9% 246 ML IV PRN (09:05)
[2018-10-01] MEDS ORDERED: NOREPINEPHRINE 1 MG/ML, 4ML ONE (09:14)
[2018-10-01] MEDS ORDERED: PIPERACILLIN/TAZO/PMX 3.375GM 50 ML IV SCH (09:30)
[2018-10-01] MEDS ORDERED: PHARMACY MAY ADJ FOR RENAL FX MC SCH (09:30)
[2018-10-01] MEDS ORDERED: ACETAMINOPHEN 650 MG/20.3 ML UDC NG PRN (09:30)
[2018-10-01] MEDS ORDERED: VANCOMYCIN PER PHARMACY MC PRN (09:30)
[2018-10-01] MEDS ORDERED: LIDOCAINE-MPF 1%, 2ML ENDO PRN (09:30)
[2018-10-01] MEDS ORDERED: PHARMACOKINETIC CONSULTATION MC ONE (10:00)
[2018-10-01] MEDS ORDERED: PHARMACOKINETIC MONITORING MC PRN (10:00)
[2018-10-01 10:22] LABS: INTERNATIONAL NORMALIZED RATIO 1.2 (0.93-1.1); PROTHROMBIN TIME 12.5 Seconds (9.6-11.5)
[2018-10-01] MEDS: VANCOMYCIN 1,800 MG in SODIUM CHLORIDE 0.9% 250 ML IV SCH (10:28)
[2018-10-01] MEDS ORDERED: DOXYCYCLINE 100MG TABLET ONE (10:29)
[2018-10-01] MEDS ORDERED: MIDAZOLAM 1 MG/ML, 5ML ONE (10:30)
[2018-10-01] MEDS ORDERED: ETOMIDATE 20 MG/10 ML ONE (10:30)
[2018-10-01] MEDS ORDERED: PROPOFOL 10 MG/ML, 100ML IV ONE (10:30)
[2018-10-01] MEDS: TAMSULOSIN 0.4 MG CAP.ER.24H PO SCH (10:31)
[2018-10-01] MEDS: PANTOPRAZOLE 40 MG IV IV SCH (10:31)
[2018-10-01] MEDS: HEPARIN 5,000 UNITS/ML, 1ML SQ SCH ×2 (10:32→17:50)
[2018-10-01] MEDS: ALBUTEROL SULFATE 2.5 MG/3 ML INLINE SCH ×4 (11:00→22:46)
[2018-10-01] MEDS ORDERED: ALBUTEROL SULFATE 2.5 MG/3 ML NPPB SCH (11:00)
[2018-10-01] MEDS: FENTANYL PF 2,500 MCG in SODIUM CHLORIDE 0.9% 200 ML IV PRN (12:22)
[2018-10-01] MEDS: PROPOFOL 100 ML IV PRN ×2 (14:18→18:30)
--- NOTE | 2018-10-01 14:32 | NUR ---
TF goal in 10/[address] Rd note if needed
[2018-10-01] MEDS: CARVEDILOL 6.25 MG TABLET PO SCH (17:48)
[2018-10-01] MEDS: PIPERACILLIN/TAZO/PMX 4.5GM 100 ML IV SCH ×2 (17:48→22:44)
[2018-10-01] MEDS: SIMVASTATIN 20 MG TABLET PO SCH (20:32)
[2018-10-02] MEDS: PROPOFOL 100 ML IV PRN ×2 (01:41→06:44)
[2018-10-02] MEDS: HEPARIN 5,000 UNITS/ML, 1ML SQ SCH ×3 (01:44→16:41)
[2018-10-02] MEDS: ALBUTEROL SULFATE 2.5 MG/3 ML INLINE SCH ×6 (02:22→23:00)
[2018-10-02 03:25] LABS: ANION GAP 8 mmol/L (5-15); CALCIUM 8.4 mg/dL (8.5-10.1); CHLORIDE 111 mmol/L (98-107); CREATININE 2.18 mg/dL (0.7-1.3)
[2018-10-02 03:27] LABS: VANCOMYCIN,RANDOM 29.2 mcg/mL
[2018-10-02] MEDS ORDERED: SODIUM CHLORIDE 0.9% 500 ML IV STA (03:41)
[2018-10-02 03:51] LABS: MEAN CORPUSCULAR HEMOGLOBIN 32.4 pg (27.5-34.5); MEAN CORPUSCULAR HGB CONC 32.8 g/dL (33.2-36.2); MEAN PLATELET VOLUME 9.3 fL (7.4-10.4); PLATELET COUNT 134 x10^3/uL (130-400); RED BLOOD COUNT 3.43 x10^6/uL (4.38-5.82); RED CELL DISTRIBUTION WIDTH 20.8 % (9.4-14.8)
[2018-10-02 04:00] VITALS: BP 104/64
[2018-10-02] MEDS ORDERED: SODIUM CHLORIDE 0.9% 500 ML IV SCH (04:00)
[2018-10-02 04:34] LABS: BAND#(MANUAL) 0.11 x10^3/uL; BANDS%(MANUAL) 1 % (0-7); LYMPH#(MANUAL) 0.34 x10^3/uL (1-3.4); LYMPHS% (MANUAL) 3 % (22-44); MD YES; MONOS#(MANUAL) 0.57 x10^3/uL (0.3-2.7); MONOS% (MANUAL) 5 % (2-9); NRBC % (MANUAL) 1 % (0-1); SEG#(MANUAL) 10.28 x10^3/uL (1.8-6.8); SEGS% (MANUAL) 91 % (42-75)
[2018-10-02 04:35] LABS: <PLATELET ESTIMATE> ADEQUATE; ANISOCYTOSIS 1+
[2018-10-02 04:36] LABS: <PLT MORPHOLOGY> NORMAL PLT MORPH
[2018-10-02] MEDS: PIPERACILLIN/TAZO/PMX 4.5GM 100 ML IV SCH ×4 (05:04→23:03)
[2018-10-02] MEDS: CARVEDILOL 6.25 MG TABLET PO SCH (05:36)
[2018-10-02] MEDS: TAMSULOSIN 0.4 MG CAP.ER.24H PO SCH (09:13)
[2018-10-02] MEDS: PANTOPRAZOLE 40 MG IV IV SCH (09:13)
[2018-10-02] MEDS: NOREPINEPHRINE 4 MG in SODIUM CHLORIDE 0.9% 246 ML IV PRN (09:57)
[2018-10-02] MEDS: FUROSEMIDE 20 MG/2 ML IV SCH ×2 (10:42→16:41)
[2018-10-02] MEDS: CARVEDILOL 12.5 MG TABLET PO SCH (18:48)
[2018-10-02] MEDS: SIMVASTATIN 20 MG TABLET PO SCH (20:40)
[2018-10-02] MEDS: FAMOTIDINE 20 MG/2 ML IVPush SCH (20:40)
[2018-10-02] MEDS ORDERED: FAMOTIDINE 20 MG/2 ML IVPush SCH (21:00)
[2018-10-03] MEDS: NOREPINEPHRINE 4 MG in SODIUM CHLORIDE 0.9% 246 ML IV PRN ×2 (00:06→11:51)
[2018-10-03] MEDS: HEPARIN 5,000 UNITS/ML, 1ML SQ SCH ×3 (00:55→17:43)
[2018-10-03] MEDS: ALBUTEROL SULFATE 2.5 MG/3 ML INLINE SCH ×6 (03:50→22:58)
[2018-10-03] MEDS: PIPERACILLIN/TAZO/PMX 4.5GM 100 ML IV SCH ×4 (05:01→23:19)
[2018-10-03 05:33] LABS: BASOPHILS % (AUTO) 0 % (0-1); EOSINOPHILS % (AUTO) 0 % (1-7); LYMPHOCYTES # (AUTO) 0.41 x10^3/uL (1-3.4); LYMPHOCYTES % (AUTO) 5 % (22-44); MD NO; MEAN CORPUSCULAR HEMOGLOBIN 32.7 pg (27.5-34.5); MEAN CORPUSCULAR VOLUME 99.1 fL (81-97); MEAN PLATELET VOLUME 8.9 fL (7.4-10.4); MONOCYTES # (AUTO) 0.68 x10^3/uL (0.2-0.8); MONOCYTES % (AUTO) 8 % (2-9); NEUTROPHILS # (AUTO) 7.95 x10^3/uL (1.8-6.8); NEUTROPHILS % (AUTO) 88 % (42-75); PLATELET COUNT 147 x10^3/uL (130-400); RED BLOOD COUNT 3.61 x10^6/uL (4.38-5.82); RED CELL DISTRIBUTION WIDTH 20.6 % (9.4-14.8)
[2018-10-03] MEDS: CARVEDILOL 12.5 MG TABLET PO SCH ×2 (06:02→18:00)
[2018-10-03] MEDS: FLUCONAZOLE 200 MG/100 ML 100 ML IV SCH (08:03)
[2018-10-03] MEDS: VANCOMYCIN 1,800 MG in SODIUM CHLORIDE 0.9% 250 ML IV SCH (10:37)
[2018-10-03] MEDS: FAMOTIDINE 20 MG/2 ML IVPush SCH (10:44)
[2018-10-03] MEDS: TAMSULOSIN 0.4 MG CAP.ER.24H PO SCH (10:48)
[2018-10-03] MEDS: FENTANYL PF 2,500 MCG in SODIUM CHLORIDE 0.9% 200 ML IV PRN (17:36)
[2018-10-03] MEDS: SIMVASTATIN 20 MG TABLET PO SCH (20:57)
[2018-10-04] MEDS: HEPARIN 5,000 UNITS/ML, 1ML SQ SCH ×3 (01:49→17:09)
[2018-10-04] MEDS: ALBUTEROL SULFATE 2.5 MG/3 ML INLINE SCH (03:00)
[2018-10-04 04:41] LABS: BASOPHILS # (AUTO) 0.01 x10^3/uL (0-0.1); BASOPHILS % (AUTO) 0 % (0-1); EOSINOPHILS # (AUTO) 0.01 x10^3/uL (0-0.4); EOSINOPHILS % (AUTO) 0 % (1-7); LYMPHOCYTES # (AUTO) 0.43 x10^3/uL (1-3.4); LYMPHOCYTES % (AUTO) 5 % (22-44); MD NO; MEAN CORPUSCULAR HEMOGLOBIN 31.7 pg (27.5-34.5); MEAN CORPUSCULAR HGB CONC 31.9 g/dL (33.2-36.2); MEAN CORPUSCULAR VOLUME 99.1 fL (81-97); MEAN PLATELET VOLUME 8.3 fL (7.4-10.4); MONOCYTES # (AUTO) 0.66 x10^3/uL (0.2-0.8); MONOCYTES % (AUTO) 7 % (2-9); NEUTROPHILS # (AUTO) 7.88 x10^3/uL (1.8-6.8); NEUTROPHILS % (AUTO) 88 % (42-75); PLATELET COUNT 142 x10^3/uL (130-400); RED BLOOD COUNT 3.63 x10^6/uL (4.38-5.82); RED CELL DISTRIBUTION WIDTH 20.9 % (9.4-14.8)
[2018-10-04] MEDS: CARVEDILOL 12.5 MG TABLET PO SCH ×2 (04:58→17:19)
[2018-10-04] MEDS: PIPERACILLIN/TAZO/PMX 4.5GM 100 ML IV SCH ×2 (04:58→11:00)
[2018-10-04] MEDS ORDERED: MAGNESIUM SULFATE PMX 2GM/50ML 50 ML IV ONE (07:00)
[2018-10-04 07:34] LABS: ALANINE AMINOTRANSFERASE 22 U/L (12-78); ANION GAP 11 mmol/L (5-15); CALCIUM 8.3 mg/dL (8.5-10.1); CHLORIDE 114 mmol/L (98-107); CREATININE 2.61 mg/dL (0.7-1.3)
[2018-10-04 07:36] LABS: ALKALINE PHOSPHATASE 198 U/L (45-117); TOTAL PROTEIN 4.9 g/dL (6.4-8.2)
[2018-10-04] MEDS: FLUCONAZOLE 200 MG/100 ML 100 ML IV SCH (07:38)
[2018-10-04] MEDS: FAMOTIDINE 20 MG/2 ML IVPush SCH (08:57)
[2018-10-04] MEDS: TAMSULOSIN 0.4 MG CAP.ER.24H PO SCH (09:05)
--- NOTE | 2018-10-04 10:05 | NUR ---
TF GOAL: w/ propofol: PROMOTE @ 70ML/HR off propofol: PROMOTE @ 80ML/HR
[2018-10-04] MEDS: ALBUMIN HUMAN 25% 100 ML IV SCH ×2 (12:44→22:30)
[2018-10-04] MEDS: PIPERACILLIN/TAZO/PMX 3.375GM 50 ML IV SCH (17:08)
[2018-10-04] MEDS: SIMVASTATIN 20 MG TABLET PO SCH (22:30)
[2018-10-05] MEDS: PIPERACILLIN/TAZO/PMX 3.375GM 50 ML IV SCH ×5 (00:06→21:26)
[2018-10-05] MEDS: HEPARIN 5,000 UNITS/ML, 1ML SQ SCH ×3 (01:34→15:56)
[2018-10-05] MEDS: CARVEDILOL 12.5 MG TABLET PO SCH ×2 (04:44→18:00)
[2018-10-05 05:10] LABS: MEAN CORPUSCULAR HGB CONC 33.5 g/dL (33.2-36.2); MEAN CORPUSCULAR VOLUME 98.7 fL (81-97); MEAN PLATELET VOLUME 8.7 fL (7.4-10.4); PLATELET COUNT 117 x10^3/uL (130-400); RED BLOOD COUNT 3.33 x10^6/uL (4.38-5.82); RED CELL DISTRIBUTION WIDTH 20.7 % (9.4-14.8)
[2018-10-05] MEDS: FENTANYL PF 2,500 MCG in SODIUM CHLORIDE 0.9% 200 ML IV PRN (05:30)
[2018-10-05 05:48] LABS: BASOPHILS % (AUTO) 0 % (0-1); EOSINOPHILS # (AUTO) 0.02 x10^3/uL (0-0.4); EOSINOPHILS % (AUTO) 0 % (1-7); LYMPHOCYTES # (AUTO) 0.51 x10^3/uL (1-3.4); LYMPHOCYTES % (AUTO) 6 % (22-44); MD SCAN; MONOCYTES # (AUTO) 0.69 x10^3/uL (0.2-0.8); MONOCYTES % (AUTO) 7 % (2-9); NEUTROPHILS # (AUTO) 8.14 x10^3/uL (1.8-6.8); NEUTROPHILS % (AUTO) 87 % (42-75)
[2018-10-05] MEDS: ALBUMIN HUMAN 25% 100 ML IV SCH ×3 (06:00→21:00)
[2018-10-05] MEDS: FAMOTIDINE 40 MG/5 ML ORAL SUSP NG SCH ×2 (09:50→10:55)
[2018-10-05] MEDS: TAMSULOSIN 0.4 MG CAP.ER.24H PO SCH (09:50)
[2018-10-05] MEDS: FLUCONAZOLE 200 MG/100 ML 100 ML IV SCH (09:50)
[2018-10-05] MEDS: ALBUTEROL SULFATE 2.5 MG/3 ML INLINE PRN (10:45)
[2018-10-05] MEDS: VANCOMYCIN 1,800 MG in SODIUM CHLORIDE 0.9% 250 ML IV SCH (10:56)
[2018-10-05] MEDS ORDERED: FUROSEMIDE 20 MG/2 ML IV ONE (15:30)
[2018-10-05] MEDS: SIMVASTATIN 20 MG TABLET PO SCH (21:26)
[2018-10-05] MEDS: FUROSEMIDE 20 MG/2 ML IV SCH (21:26)
[2018-10-06] MEDS: HEPARIN 5,000 UNITS/ML, 1ML SQ SCH ×3 (01:50→17:47)
[2018-10-06 04:12] LABS: BASOPHILS % (AUTO) 0 % (0-1); EOSINOPHILS # (AUTO) 0.03 x10^3/uL (0-0.4); EOSINOPHILS % (AUTO) 0 % (1-7); LYMPHOCYTES # (AUTO) 0.43 x10^3/uL (1-3.4); LYMPHOCYTES % (AUTO) 5 % (22-44); MD NO; MEAN CORPUSCULAR HEMOGLOBIN 32.6 pg (27.5-34.5); MEAN CORPUSCULAR HGB CONC 33.1 g/dL (33.2-36.2); MEAN CORPUSCULAR VOLUME 98.5 fL (81-97); MONOCYTES # (AUTO) 0.79 x10^3/uL (0.2-0.8); MONOCYTES % (AUTO) 10 % (2-9); NEUTROPHILS # (AUTO) 6.73 x10^3/uL (1.8-6.8); NEUTROPHILS % (AUTO) 84 % (42-75); PLATELET COUNT 112 x10^3/uL (130-400); RED BLOOD COUNT 3.36 x10^6/uL (4.38-5.82); RED CELL DISTRIBUTION WIDTH 20.3 % (9.4-14.8)
[2018-10-06 04:57] LABS: ANION GAP 12 mmol/L (5-15); CALCIUM 8.6 mg/dL (8.5-10.1); CHLORIDE 110 mmol/L (98-107); CREATININE 3.71 mg/dL (0.7-1.3)
[2018-10-06] MEDS: PIPERACILLIN/TAZO/PMX 3.375GM 50 ML IV SCH ×4 (05:17→23:37)
[2018-10-06] MEDS: CARVEDILOL 12.5 MG TABLET PO SCH ×2 (05:18→17:47)
[2018-10-06] MEDS: FLUCONAZOLE 200 MG/100 ML 100 ML IV SCH (07:29)
[2018-10-06] MEDS: ALBUMIN HUMAN 25% 100 ML IV SCH (08:41)
[2018-10-06] MEDS: TAMSULOSIN 0.4 MG CAP.ER.24H PO SCH (08:41)
[2018-10-06] MEDS: FENTANYL PF 2,500 MCG in SODIUM CHLORIDE 0.9% 200 ML IV PRN (08:42)
[2018-10-06] MEDS: FAMOTIDINE 40 MG/5 ML ORAL SUSP NG SCH (09:08)
[2018-10-06] MEDS ORDERED: LACTULOSE 20 GM/30 ML UDC NG PRN (09:30)
[2018-10-06] MEDS ORDERED: BISACODYL 10 MG SUPP PR PRN (09:30)
[2018-10-06] MEDS: FUROSEMIDE 20 MG/2 ML IV SCH ×2 (09:33→17:47)
[2018-10-06] MEDS: NOREPINEPHRINE 4 MG in SODIUM CHLORIDE 0.9% 246 ML IV PRN (14:35)
[2018-10-06] MEDS: ALBUTEROL SULFATE 2.5 MG/3 ML INLINE PRN (18:29)
[2018-10-06] MEDS: SIMVASTATIN 20 MG TABLET PO SCH (22:22)
[2018-10-06] MEDS: SENNOSIDES 8.8 MG/5 ML ORAL SOL NG SCH (22:23)
[2018-10-07] MEDS: HEPARIN 5,000 UNITS/ML, 1ML SQ SCH ×3 (02:04→18:26)
[2018-10-07] MEDS: NOREPINEPHRINE 4 MG in SODIUM CHLORIDE 0.9% 246 ML IV PRN ×2 (03:25→16:56)
[2018-10-07] MEDS: PIPERACILLIN/TAZO/PMX 3.375GM 50 ML IV SCH ×4 (03:59→23:10)
[2018-10-07 04:15] LABS: MEAN CORPUSCULAR HEMOGLOBIN 32.3 pg (27.5-34.5); MEAN CORPUSCULAR VOLUME 97.9 fL (81-97); MEAN PLATELET VOLUME 8.8 fL (7.4-10.4); PLATELET COUNT 112 x10^3/uL (130-400); RED BLOOD COUNT 3.44 x10^6/uL (4.38-5.82); RED CELL DISTRIBUTION WIDTH 20.9 % (9.4-14.8)
[2018-10-07 04:31] LABS: VANCOMYCIN,RANDOM 43.1 mcg/mL
[2018-10-07 04:35] LABS: BASOPHILS # (AUTO) 0.01 x10^3/uL (0-0.1); BASOPHILS % (AUTO) 0 % (0-1); EOSINOPHILS # (AUTO) 0.03 x10^3/uL (0-0.4); EOSINOPHILS % (AUTO) 0 % (1-7); LYMPHOCYTES # (AUTO) 0.62 x10^3/uL (1-3.4); LYMPHOCYTES % (AUTO) 7 % (22-44); MD SCAN; MONOCYTES # (AUTO) 0.95 x10^3/uL (0.2-0.8); MONOCYTES % (AUTO) 10 % (2-9); NEUTROPHILS # (AUTO) 7.78 x10^3/uL (1.8-6.8); NEUTROPHILS % (AUTO) 83 % (42-75)
[2018-10-07] MEDS: CARVEDILOL 12.5 MG TABLET PO SCH ×2 (05:01→18:00)
[2018-10-07 06:39] LABS: ANION GAP 13 mmol/L (5-15); CALCIUM 8.5 mg/dL (8.5-10.1); CHLORIDE 111 mmol/L (98-107); CREATININE 4.16 mg/dL (0.7-1.3)
[2018-10-07] MEDS: TAMSULOSIN 0.4 MG CAP.ER.24H PO SCH (09:42)
[2018-10-07] MEDS: DOCUSATE 50 MG/5 ML, 10ML UDC PO SCH (09:42)
[2018-10-07] MEDS: FAMOTIDINE 40 MG/5 ML ORAL SUSP NG SCH (13:46)
[2018-10-07] MEDS: SENNOSIDES 8.8 MG/5 ML ORAL SOL NG SCH (21:00)
[2018-10-07] MEDS: SIMVASTATIN 20 MG TABLET PO SCH (23:09)
[2018-10-07] MEDS: FENTANYL PF 2,500 MCG in SODIUM CHLORIDE 0.9% 200 ML IV PRN (23:33)
[2018-10-08] MEDS: HEPARIN 5,000 UNITS/ML, 1ML SQ SCH ×2 (01:41→09:30)
[2018-10-08] MEDS: PIPERACILLIN/TAZO/PMX 3.375GM 50 ML IV SCH ×2 (04:23→11:00)
[2018-10-08 04:46] LABS: BASOPHILS % (AUTO) 0 % (0-1); EOSINOPHILS # (AUTO) 0.09 x10^3/uL (0-0.4); EOSINOPHILS % (AUTO) 1 % (1-7); LYMPHOCYTES # (AUTO) 0.55 x10^3/uL (1-3.4); LYMPHOCYTES % (AUTO) 5 % (22-44); MD NO; MEAN CORPUSCULAR HEMOGLOBIN 31.2 pg (27.5-34.5); MEAN CORPUSCULAR HGB CONC 31.8 g/dL (33.2-36.2); MEAN CORPUSCULAR VOLUME 98.3 fL (81-97); MEAN PLATELET VOLUME 9.1 fL (7.4-10.4); MONOCYTES # (AUTO) 1.14 x10^3/uL (0.2-0.8); MONOCYTES % (AUTO) 10 % (2-9); NEUTROPHILS # (AUTO) 9.19 x10^3/uL (1.8-6.8); NEUTROPHILS % (AUTO) 84 % (42-75); PLATELET COUNT 106 x10^3/uL (130-400); RED BLOOD COUNT 3.55 x10^6/uL (4.38-5.82); RED CELL DISTRIBUTION WIDTH 20.9 % (9.4-14.8)
[2018-10-08] MEDS: CARVEDILOL 12.5 MG TABLET PO SCH (05:01)
[2018-10-08 05:28] LABS: ANION GAP 12 mmol/L (5-15); CALCIUM 8.7 mg/dL (8.5-10.1); CHLORIDE 110 mmol/L (98-107); CREATININE 4.57 mg/dL (0.7-1.3)
[2018-10-08] MEDS: TAMSULOSIN 0.4 MG CAP.ER.24H PO SCH (09:00)
[2018-10-08] MEDS: DOCUSATE 50 MG/5 ML, 10ML UDC PO SCH (09:00)
[2018-10-08] MEDS: FAMOTIDINE 40 MG/5 ML ORAL SUSP NG SCH (09:00)
[2018-10-08] MEDS ORDERED: LORazepam 2 MG/ML, 1ML IV PRN (12:30)
[2018-10-08] MEDS ORDERED: morphine SULFATE 10 MG/ML, 1ML IV ONE (12:30)
[2018-10-08] MEDS ORDERED: LORazepam 2 MG/ML, 1ML IV ONE (12:30)
[2018-10-08] MEDS ORDERED: ATROPINE OPHTH SOLN 1%, 2ML PO PRN (12:30)
[2018-10-08] MEDS ORDERED: morphine SULFATE 10 MG/ML, 1ML IV PRN (12:30)
[2018-10-08] MEDS ORDERED: MORPHINE SULFATE 4 MG/ML, 1ML ONE (14:10)
[2018-10-08] MEDS: MORPHINE SULFATE 4 MG/ML, 1ML IVPush PRN ×2 (14:18→14:39)
[2018-10-08] MEDS ORDERED: SCOPOLAMINE PATCH, 1.5MG PATCH.TD72 TD SCH (14:30)
[2018-10-08] MEDS ORDERED: MORPHINE SULFATE 4 MG/ML, 1ML IVPush PRN (14:30)
[2018-10-08] MEDS ORDERED: MORPHINE SULFATE 4 MG/ML, 1ML IVPush ONE ×2 (14:30)
[2018-10-08] MEDS ORDERED: LORazepam 2 MG/ML, 1ML IVPush ONE (14:30)
[2018-10-08] MEDS: LORazepam 2 MG/ML, 1ML IVPush PRN ×2 (14:39→16:12)
== END 2018-10-08 20:28 | disposition expired | DRG 870 ==
LOC: ED 22:47 → EDIP 10-01 00:02 → 5SO 10-01 01:04 → CCU 10-01 08:30 → ICU 10-04 21:17
PROVIDERS: ADMIT Family Medicine; ATTEND Family Medicine
PROC: 0T9B70Z Drainage of Bladder with Drainage Device, Via Natural or Artificial Opening (ICD-10-PCS; principal; 2018-10-01)
PROC: 5A1955Z Respiratory Ventilation, Greater than 96 Consecutive Hours (ICD-10-PCS; 2018-10-01)
PROC: 0BH17EZ Insertion of Endotracheal Airway into Trachea, Via Natural or Artificial Opening (ICD-10-PCS; 2018-10-01)
PROC: 02HV33Z Insertion of Infusion Device into Superior Vena Cava, Percutaneous Approach (ICD-10-PCS; 2018-10-01)
DX: A41.9 Sepsis, unspecified organism (principal); R65.21 Severe sepsis with septic shock; J96.00 Acute respiratory failure, unspecified whether with hypoxia or hypercapnia; E43 Unspecified severe protein-calorie malnutrition; G93.41 Metabolic encephalopathy; I50.21 Acute systolic (congestive) heart failure; I71.01 Dissection of thoracic aorta; J15.212 Pneumonia due to Methicillin resistant Staphylococcus aureus; N17.0 Acute kidney failure with tubular necrosis; L03.115 Cellulitis of right lower limb; L03.116 Cellulitis of left lower limb; B37.49 Other urogenital candidiasis; D68.59 Other primary thrombophilia; E87.0 Hyperosmolality and hypernatremia; I13.0 Hypertensive heart and chronic kidney disease with heart failure and stage 1 through stage 4 chronic kidney disease, or unspecified chronic kidney disease; Z99.11 Dependence on respirator [ventilator] status; D32.0 Benign neoplasm of cerebral meninges; D50.9 Iron deficiency anemia, unspecified; D69.6 Thrombocytopenia, unspecified; E04.1 Nontoxic single thyroid nodule; E11.22 Type 2 diabetes mellitus with diabetic chronic kidney disease; E78.5 Hyperlipidemia, unspecified; E83.42 Hypomagnesemia; E87.5 Hyperkalemia; F17.200 Nicotine dependence, unspecified, uncomplicated; I27.20 Pulmonary hypertension, unspecified; I48.91 Unspecified atrial fibrillation; I87.2 Venous insufficiency (chronic) (peripheral); I87.8 Other specified disorders of veins; K21.9 Gastro-esophageal reflux disease without esophagitis; M10.9 Gout, unspecified; N18.9 Chronic kidney disease, unspecified; N30.91 Cystitis, unspecified with hematuria; N40.0 Benign prostatic hyperplasia without lower urinary tract symptoms; Z51.5 Encounter for palliative care; Z79.01 Long term (current) use of anticoagulants; Z86.73 Personal history of transient ischemic attack (TIA), and cerebral infarction without residual deficits; Z68.32 Body mass index [BMI] 32.0-32.9, adult; Z88.8 Allergy status to other drugs, medicaments and biological substances
CPT/HCPCS: 36415; 36600; 70450; 71045; 76770; 80048; 80053; 80202; 81001; 82040; 82533; 82803; 83605; 83735; 83880; 84145; 84478; 84484; 85025; 85610; 87040; 87070; 87077; 87081; 87086; 87186; 87205; 93005; 93970; 94002; 94003; 94640; 96365; 96367; 96372; 96375; 99291; G0378; J0696; J1644; J1940; J2250; J2543; J2704; J3010; J3370; J7613; P9047; C9113; J1450; J2060; J3475; J3490; J7030; J7040; J7050